=== PATIENT | female | born 1945 | race Caucasian/White ===

== ENCOUNTER 2024-05-12 22:30 | Inpatient (IN) | payer OTHER ==
[~2024-05-12] VITALS: Ht 152.4 cm; Wt 56.2 kg
[2024-05-12 22:36] VITALS: BP_SYST 182; PULSE 110; RESP 19; TEMP 98.3; O2SAT 94
[2024-05-12 23:13] LABS: BASOPHILS # (AUTO) 0.1 K/uL (0.0-0.2); BASOPHILS % (AUTO) 0.8 % (0.0-2.0); EOSINOPHILS # (AUTO) 0.1 K/uL (0.0-0.4); EOSINOPHILS % (AUTO) 0.5 % (0.0-4.0); HEMATOCRIT 41.6 % (36-48); HEMOGLOBIN 13.9 g/dL (12.0-16.0); LYMPHOCYTES # (AUTO) 2.8 K/uL (1.0-5.5); LYMPHOCYTES % (AUTO) 21.7 % (20.5-51.5); MEAN CORPUSCULAR HEMOGLOBIN 27 pg (27-31); MEAN CORPUSCULAR HGB CONC 33 % (32-36); MEAN CORPUSCULAR VOLUME 82 fL (79.0-98.0); MONOCYTES # (AUTO) 0.7 K/uL (0.0-1.0); MONOCYTES % (AUTO) 5.5 % (1.7-9.3); NEUTROPHILS # (AUTO) 9.3 K/uL (1.8-7.7); NEUTROPHILS % (AUTO) 71.5 % (40.0-70.0); PLATELET COUNT (AUTO) 304 K/uL (130-430); RED BLOOD CELL COUNT(AUTO) 5.06 MIL/uL (4.2-6.2); RED CELL DISTRIBUTION WIDTH 16.8 % (9.0-15.0)
[2024-05-12] MEDS: levETIRAcetam 1,500 MG in NS 85 ML IV ONE (23:24)
[2024-05-12] MEDS: LORazepam 2 MG/ML VIAL IVP ONE (23:26)
[2024-05-12 23:44] LABS: PROTHROMBIN TIME 10.3 SECS (9.5-12.5)
[2024-05-13] VITALS (7 sets, daily range): BP systolic 138–156; PULSE 80–104; RESP 16–20; TEMP 97.7–102; O2SAT 95–100
[2024-05-13 00:03] LABS: ALANINE AMINOTRANSFERASE 13 U/L (12-78); ALBUMIN 3.2 g/dL (3.4-4.8); ANION GAP 12 (5-15); ASPARTATE AMINOTRANSFERASE 16 U/L (10-37); BILIRUBIN,DIRECT 0.2 mg/dL (0.0-0.3); CARBON DIOXIDE 28 mmol/L (23-29); CHLORIDE 104 mmol/L (98-107); CREATININE 0.83 mg/dL (0.55-1.30); GLUCOSE 129 mg/dL (74-106); SODIUM SERUM 144 mmol/L (136-145); TOTAL BILIRUBIN 0.8 mg/dL (0.0-1.0); TOTAL PROTEIN, SERUM 7.8 g/dL (6.4-8.3); UREA NITROGEN, BLOOD 10 mg/dL (8-21)
[2024-05-13] MEDS ORDERED: PIPERACILLIN/TAZOBACTAM 4.5 GM/VIAL (ZOSYN) IV ONE (01:05)
[2024-05-13] MEDS: PIPERACILLIN/TAZO 4.5 GM in NS 100 ML IV ONE (01:35)
[2024-05-13] MEDS: hydrALAZINE HCL 20 MG/ML VIAL IVP ONE (01:40)
[2024-05-13] MEDS: NACL 0.9% 1,000 ML IV ONE (01:40)
[2024-05-13 02:14] LABS: BILIRUBIN,URINE NEGATIVE (NEGATIVE); CLARITY/URINE SL CLOUDY (CLEAR); COLOR,URINE YELLOW (YELLOW); GLUCOSE,URINE NEGATIVE (NEGATIVE); KETONES,URINE TRACE (NEGATIVE); LEUKOCYTE ESTERASE ,URINE 1+ (NEGATIVE); NITRITE, URINE POSITIVE (NEGATIVE); PH,URINE 6.5 (5.0-8.0); PROTEIN URINE 2+ (NEGATIVE)
[2024-05-13] MEDS ORDERED: ESCI5TAB16 PO (02:22)
[2024-05-13] MEDS ORDERED: ATOR40TA68 PO (02:22)
[2024-05-13] MEDS ORDERED: HYDR50TA44 PO (02:22)
[2024-05-13] MEDS ORDERED: GABA-331 PO (02:22)
[2024-05-13] MEDS ORDERED: ASPI-1155 PO (02:22)
[2024-05-13] MEDS ORDERED: LISI20TA30 PO (02:22)
[2024-05-13] MEDS ORDERED: ASPI-1393 PO (02:22)
[2024-05-13] MEDS ORDERED: ATEN50TA PO (02:22)
[2024-05-13] MEDS ORDERED: KCL 20 mEq in 100 mL (PREMIX) 200 ML IV ONE (02:33)
[2024-05-13 02:37] LABS: BLOOD, URINE TRACE (NEGATIVE)
[2024-05-13 02:39] LABS: BACTERIA,URINE MANY /HPF (None Seen); WBC,URINE >100 /HPF (0-3)
[2024-05-13] MEDS: KCL 40 mEq in 100 mL (PREMIX) 100 ML IV ONE (02:40)
[2024-05-13] MEDS: D5/0.45 NS 1,000 ML IV SCH (04:40)
[2024-05-13] MEDS ORDERED: levETIRAcetam 500 MG IV PREMIX 100 ML IV SCH (09:00)
[2024-05-13] MEDS: ACETAMINOPHEN 650 MG SUPP.RECT RC PRN (09:16)
[2024-05-13] MEDS: levETIRAcetam 500 MG IV PREMIX 100 ML IV SCH (09:16)
[2024-05-13] MEDS ORDERED: PIPERACILLIN/TAZO 3.375 GM in NS 50 ML IV ONE (11:15)
[2024-05-13] MEDS ORDERED: LABETALOL HCL 20 MG/4 ML CARTRIDGE IVP PRN (11:15)
[2024-05-13] MEDS: PIPERACILLIN/TAZO 3.375 GM in NS 50 ML IV SCH (15:48)
[2024-05-14 00:44] VITALS: BP_SYST 154; PULSE 95; RESP 19; TEMP 98.1; O2SAT 98
[2024-05-14 08:04] VITALS: BP_SYST 229; PULSE 76; RESP 16; TEMP 97.3; O2SAT 98
[2024-05-14] MEDS: LABETALOL HCL 20 MG/4 ML CARTRIDGE IVP PRN ×2 (08:32→16:22)
[2024-05-14 09:00] VITALS: O2SAT 98
[2024-05-14 12:04] LABS: ALANINE AMINOTRANSFERASE 8 U/L (12-78); ALBUMIN 2.6 g/dL (3.4-4.8); ANION GAP 7 (5-15); ASPARTATE AMINOTRANSFERASE 14 U/L (10-37); CARBON DIOXIDE 28 mmol/L (23-29); CHLORIDE 108 mmol/L (98-107); CREATININE 0.78 mg/dL (0.55-1.30); GLUCOSE 114 mg/dL (74-106); SODIUM SERUM 143 mmol/L (136-145); TOTAL BILIRUBIN 0.9 mg/dL (0.0-1.0); TOTAL PROTEIN, SERUM 6.5 g/dL (6.4-8.3); UREA NITROGEN, BLOOD 3 mg/dL (8-21)
[2024-05-14 12:10] LABS: POTASSIUM 2.7 mmol/L (3.5-5.1)
[2024-05-14 12:42] VITALS: BP_SYST 148; PULSE 82; RESP 18; TEMP 97.2; O2SAT 98
[2024-05-14 16:48] VITALS: BP_SYST 194; PULSE 84; RESP 18; TEMP 97.7; O2SAT 100
[2024-05-14] MEDS: ENALAPRILAT DIHYDRATE 1.25 MG/ML VIAL IVP PRN (18:17)
[2024-05-14] MEDS: VANCOMYCIN HCL 1,000 MG in NS 250 ML IV ONE (19:15)
[2024-05-14 19:40] VITALS: BP_SYST 185; PULSE 90; RESP 21; TEMP 97.6; O2SAT 98
[2024-05-14] MEDS: METOPROLOL TARTRATE 25 MG TABLET PO SCH (20:07)
[2024-05-14] MEDS: ACETAMINOPHEN 650 MG SUPP.RECT RC PRN (20:09)
[2024-05-14] MEDS: hydrALAZINE HCL 25 MG TABLET PO SCH (21:38)
[2024-05-14] MEDS: POTASSIUM CHLORIDE 40 MEQ in NS 250 ML IV ONE (22:02)
[2024-05-14] MEDS: KCL 40 mEq in 100 mL (PREMIX) 100 ML IV ONE (22:03)
[2024-05-14] MEDS: LABETALOL 100 MG/ 20ML VIAL ONE (23:46)
[2024-05-15] VITALS (7 sets, daily range): BP systolic 140–215; PULSE 92–97; RESP 18–21; TEMP 98.5–99.5; O2SAT 95–97
[2024-05-15] MEDS: LORazepam 2 MG/ML VIAL IVP ONE (03:49)
[2024-05-15] MEDS: levETIRAcetam 500 MG in NS 100 ML IV ONE (04:04)
[2024-05-15] MEDS: ceFAZolin SODIUM 1 GM in D5W 50 ML IV ONE (06:30)
[2024-05-15] MEDS: MIDAZOLAM HCL 5 MG/5 ML VIAL ONE (06:34)
[2024-05-15] MEDS: fentaNYL CITRATE/PF 100 MCG/2 ML AMP ONE (06:34)
[2024-05-15 07:06] LABS: BASOPHILS # (AUTO) 0.1 K/uL (0.0-0.2); BASOPHILS % (AUTO) 0.7 % (0.0-2.0); EOSINOPHILS % (AUTO) 0.1 % (0.0-4.0); HEMATOCRIT 30.6 % (36-48); HEMOGLOBIN 10.1 g/dL (12.0-16.0); LYMPHOCYTES # (AUTO) 1.7 K/uL (1.0-5.5); LYMPHOCYTES % (AUTO) 14.5 % (20.5-51.5); MEAN CORPUSCULAR HEMOGLOBIN 27 pg (27-31); MEAN CORPUSCULAR HGB CONC 33 % (32-36); MEAN CORPUSCULAR VOLUME 82 fL (79.0-98.0); MONOCYTES # (AUTO) 0.6 K/uL (0.0-1.0); MONOCYTES % (AUTO) 5.4 % (1.7-9.3); NEUTROPHILS # (AUTO) 9.5 K/uL (1.8-7.7); NEUTROPHILS % (AUTO) 79.3 % (40.0-70.0); PLATELET COUNT (AUTO) 241 K/uL (130-430); RED BLOOD CELL COUNT(AUTO) 3.73 MIL/uL (4.2-6.2); RED CELL DISTRIBUTION WIDTH 16.7 % (9.0-15.0); WHITE BLOOD COUNT (AUTO) 11.9 K/uL (4.8-10.8)
[2024-05-15 07:27] LABS: ANION GAP 8 (5-15); CALCIUM 7.4 mg/dL (8.4-11.0); CARBON DIOXIDE 27 mmol/L (23-29); CHLORIDE 108 mmol/L (98-107); CREATININE 0.81 mg/dL (0.55-1.30); GLUCOSE 139 mg/dL (74-106); SODIUM SERUM 143 mmol/L (136-145); UREA NITROGEN, BLOOD 4 mg/dL (8-21)
[2024-05-15 07:36] LABS: INR 1.1 (0.8-1.2); PROTHROMBIN TIME 11.3 SECS (9.5-12.5)
[2024-05-15 07:47] LABS: POTASSIUM 2.9 mmol/L (3.5-5.1)
[2024-05-15] MEDS: POTASSIUM CHLORIDE 40 MEQ in NS 250 ML IV ONE (10:06)
[2024-05-15] MEDS: LOSARTAN POTASSIUM 25 MG TABLET PO ONE (18:05)
[2024-05-15] MEDS: LOSARTAN POTASSIUM 25 MG TABLET PO SCH (20:46)
[2024-05-15] MEDS: VANCOMYCIN HCL 1,000 MG in NS 250 ML IV SCH (21:56)
[2024-05-16] VITALS (8 sets, daily range): BP systolic 143–220; PULSE 78–89; RESP 16–20; TEMP 97.7–98.2; O2SAT 96–98
[2024-05-16] MEDS: LABETALOL 100 MG/ 20ML VIAL ONE (00:20)
[2024-05-16 07:15] LABS: BASOPHILS % (AUTO) 0.4 % (0.0-2.0); EOSINOPHILS % (AUTO) 0.4 % (0.0-4.0); HEMATOCRIT 34.5 % (36-48); HEMOGLOBIN 11.1 g/dL (12.0-16.0); LYMPHOCYTES # (AUTO) 1.6 K/uL (1.0-5.5); LYMPHOCYTES % (AUTO) 12.1 % (20.5-51.5); MEAN CORPUSCULAR HEMOGLOBIN 27 pg (27-31); MEAN CORPUSCULAR HGB CONC 32 % (32-36); MEAN CORPUSCULAR VOLUME 83 fL (79.0-98.0); MONOCYTES # (AUTO) 0.6 K/uL (0.0-1.0); MONOCYTES % (AUTO) 4.8 % (1.7-9.3); NEUTROPHILS # (AUTO) 10.7 K/uL (1.8-7.7); NEUTROPHILS % (AUTO) 82.3 % (40.0-70.0); PLATELET COUNT (AUTO) 263 K/uL (130-430); RED BLOOD CELL COUNT(AUTO) 4.15 MIL/uL (4.2-6.2)
[2024-05-16 07:38] LABS: ANION GAP 10 (5-15); CALCIUM 7.9 mg/dL (8.4-11.0); CARBON DIOXIDE 26 mmol/L (23-29); CHLORIDE 105 mmol/L (98-107); CREATININE 0.75 mg/dL (0.55-1.30); GLUCOSE 147 mg/dL (74-106); POTASSIUM 3.2 mmol/L (3.5-5.1); SODIUM SERUM 141 mmol/L (136-145); UREA NITROGEN, BLOOD 4 mg/dL (8-21)
[2024-05-16] MEDS: ASPIRIN 81 MG TABLET(ECOTRIN) PO SCH (08:23)
[2024-05-16] MEDS: ALBUTEROL SULFATE 0.083% 2.5 MG/3 ML VIAL.NEB INH SCH (15:17)
[2024-05-16] MEDS: IPRATROPIUM BROM 0.5 MG/2.5 ML VIAL.NEB (ATROVENT) INH SCH (15:17)
[2024-05-16] MEDS: ACETYLCYSTEINE 20% 4 ML VIAL (RT) INH SCH (15:18)
[2024-05-16] MEDS: CELECOXIB 100 MG CAPSULE PO PRN (20:11)
[2024-05-17] VITALS (13 sets, daily range): BP systolic 144–201; PULSE 76–98; RESP 16–19; TEMP 97.5–98.7; O2SAT 95–100
[2024-05-17 07:44] LABS: BASOPHILS % (AUTO) 0.4 % (0.0-2.0); EOSINOPHILS # (AUTO) 0.1 K/uL (0.0-0.4); EOSINOPHILS % (AUTO) 0.7 % (0.0-4.0); HEMATOCRIT 32.9 % (36-48); HEMOGLOBIN 10.7 g/dL (12.0-16.0); LYMPHOCYTES # (AUTO) 1.4 K/uL (1.0-5.5); LYMPHOCYTES % (AUTO) 11.5 % (20.5-51.5); MEAN CORPUSCULAR HEMOGLOBIN 27 pg (27-31); MEAN CORPUSCULAR HGB CONC 33 % (32-36); MEAN CORPUSCULAR VOLUME 82 fL (79.0-98.0); MONOCYTES # (AUTO) 0.7 K/uL (0.0-1.0); MONOCYTES % (AUTO) 5.8 % (1.7-9.3); NEUTROPHILS % (AUTO) 81.6 % (40.0-70.0); PLATELET COUNT (AUTO) 273 K/uL (130-430); RED BLOOD CELL COUNT(AUTO) 4.02 MIL/uL (4.2-6.2); RED CELL DISTRIBUTION WIDTH 16.4 % (9.0-15.0); WHITE BLOOD COUNT (AUTO) 12.3 K/uL (4.8-10.8)
[2024-05-17 07:50] LABS: ALANINE AMINOTRANSFERASE 11 U/L (12-78); ALBUMIN 2.3 g/dL (3.4-4.8); ANION GAP 10 (5-15); ASPARTATE AMINOTRANSFERASE 18 U/L (10-37); CALCIUM 7.5 mg/dL (8.4-11.0); CARBON DIOXIDE 26 mmol/L (23-29); CHLORIDE 100 mmol/L (98-107); CREATININE 0.83 mg/dL (0.55-1.30); GLUCOSE 153 mg/dL (74-106); SODIUM SERUM 136 mmol/L (136-145); TOTAL BILIRUBIN 0.5 mg/dL (0.0-1.0); TOTAL PROTEIN, SERUM 6.2 g/dL (6.4-8.3); UREA NITROGEN, BLOOD 3 mg/dL (8-21)
[2024-05-17 07:53] LABS: POTASSIUM 2.6 mmol/L (3.5-5.1)
[2024-05-17] MEDS: DOCUSATE SODIUM 100 MG/10 ML UDC PO PRN (08:20)
[2024-05-17] MEDS ORDERED: KCL 40 mEq in 100 mL (PREMIX) 100 ML IV ONE (10:00)
[2024-05-17] MEDS: POTASSIUM CHLORIDE 20 mEq in 100 mL (PREMIX) 100 ML x 2 doses IV SCH (10:37)
[2024-05-17] MEDS: CALCIUM GLUC 2 GM/100ML-NACL 100 ML IV ONE (13:32)
[2024-05-18] VITALS (13 sets, daily range): BP systolic 166–202; PULSE 90–112; RESP 16–22; TEMP 97.8–99.1; O2SAT 96–100
[2024-05-18 07:52] LABS: ALANINE AMINOTRANSFERASE 12 U/L (12-78); ALBUMIN 2.2 g/dL (3.4-4.8); ANION GAP 9 (5-15); ASPARTATE AMINOTRANSFERASE 20 U/L (10-37); CALCIUM 7.9 mg/dL (8.4-11.0); CARBON DIOXIDE 27 mmol/L (23-29); CHLORIDE 101 mmol/L (98-107); CREATININE 0.87 mg/dL (0.55-1.30); GLUCOSE 195 mg/dL (74-106); PHOSPHORUS 2.2 mg/dL (2.7-4.5); SODIUM SERUM 137 mmol/L (136-145); TOTAL BILIRUBIN 0.5 mg/dL (0.0-1.0); UREA NITROGEN, BLOOD 5 mg/dL (8-21)
[2024-05-18 07:55] LABS: BASOPHILS % (AUTO) 0.1 % (0.0-2.0); EOSINOPHILS % (AUTO) 0.2 % (0.0-4.0); HEMATOCRIT 32.7 % (36-48); HEMOGLOBIN 10.7 g/dL (12.0-16.0); LYMPHOCYTES # (AUTO) 1.1 K/uL (1.0-5.5); LYMPHOCYTES % (AUTO) 5.7 % (20.5-51.5); MEAN CORPUSCULAR HEMOGLOBIN 27 pg (27-31); MEAN CORPUSCULAR HGB CONC 33 % (32-36); MEAN CORPUSCULAR VOLUME 81 fL (79.0-98.0); MONOCYTES # (AUTO) 0.9 K/uL (0.0-1.0); MONOCYTES % (AUTO) 4.9 % (1.7-9.3); NEUTROPHILS # (AUTO) 16.9 K/uL (1.8-7.7); NEUTROPHILS % (AUTO) 89.1 % (40.0-70.0); PLATELET COUNT (AUTO) 288 K/uL (130-430); RED BLOOD CELL COUNT(AUTO) 4.03 MIL/uL (4.2-6.2); RED CELL DISTRIBUTION WIDTH 16.6 % (9.0-15.0)
[2024-05-18 08:44] LABS: POTASSIUM 2.7 mmol/L (3.5-5.1)
[2024-05-18 09:00] LABS: ERYTHROCYTE SEDIMENTATION RATE 42 MM/HR (0-20)
[2024-05-18] MEDS: FUROSEMIDE 20 MG/2 ML VIAL IVP ONE (09:15)
[2024-05-18] MEDS: POTASSIUM CHLORIDE 40 MEQ in NS 250 ML IV ONE (10:47)
[2024-05-18] MEDS ORDERED: IPRATROPIUM BROM 0.5 MG/2.5 ML VIAL.NEB (ATROVENT) INH PRN (11:00)
[2024-05-18] MEDS ORDERED: ALBUTEROL SULFATE 0.083% 2.5 MG/3 ML VIAL.NEB INH PRN (11:00)
[2024-05-18 11:34] LABS: ANISOCYTOSIS 1+
[2024-05-18] MEDS: IPRATROPIUM/ALBUTEROL SULFATE 3 ML AMPUL.NEB (DUONEB) INH SCH (11:37)
[2024-05-18] MEDS: cloNIDine HCL 0.1 MG/24 HR PATCH.TDWK TD ONE (12:23)
[2024-05-18] MEDS: LABETALOL 100 MG/ 20ML VIAL ONE (23:03)
[2024-05-19] VITALS (13 sets, daily range): BP systolic 133–187; PULSE 97–108; RESP 16–20; TEMP 97.1–99.4; O2SAT 91–97
[2024-05-19 07:08] LABS: BASOPHILS # (AUTO) 0.1 K/uL (0.0-0.2); BASOPHILS % (AUTO) 0.3 % (0.0-2.0); EOSINOPHILS # (AUTO) 0.4 K/uL (0.0-0.4); EOSINOPHILS % (AUTO) 1.9 % (0.0-4.0); HEMATOCRIT 31.8 % (36-48); HEMOGLOBIN 10.4 g/dL (12.0-16.0); LYMPHOCYTES # (AUTO) 1.2 K/uL (1.0-5.5); LYMPHOCYTES % (AUTO) 5.5 % (20.5-51.5); MEAN CORPUSCULAR HEMOGLOBIN 27 pg (27-31); MEAN CORPUSCULAR HGB CONC 33 % (32-36); MEAN CORPUSCULAR VOLUME 81 fL (79.0-98.0); MONOCYTES % (AUTO) 4.8 % (1.7-9.3); NEUTROPHILS # (AUTO) 18.9 K/uL (1.8-7.7); NEUTROPHILS % (AUTO) 87.5 % (40.0-70.0); PLATELET COUNT (AUTO) 263 K/uL (130-430); RED BLOOD CELL COUNT(AUTO) 3.91 MIL/uL (4.2-6.2); RED CELL DISTRIBUTION WIDTH 16.8 % (9.0-15.0); WHITE BLOOD COUNT (AUTO) 21.6 K/uL (4.8-10.8)
[2024-05-19 07:57] LABS: ALANINE AMINOTRANSFERASE 14 U/L (12-78); ALBUMIN 2.1 g/dL (3.4-4.8); ANION GAP 8 (5-15); ASPARTATE AMINOTRANSFERASE 22 U/L (10-37); CARBON DIOXIDE 29 mmol/L (23-29); CHLORIDE 102 mmol/L (98-107); GLUCOSE 142 mg/dL (74-106); SODIUM SERUM 139 mmol/L (136-145); TOTAL BILIRUBIN 0.5 mg/dL (0.0-1.0); TOTAL PROTEIN, SERUM 5.9 g/dL (6.4-8.3); UREA NITROGEN, BLOOD 5 mg/dL (8-21)
[2024-05-19 08:05] LABS: POTASSIUM 2.6 mmol/L (3.5-5.1)
[2024-05-19] MEDS ORDERED: cloNIDine HCL 0.1 MG TABLET PO PRN (12:00)
[2024-05-19] MEDS: KCL 40 mEq in 100 mL (PREMIX) 100 ML IV ONE ×2 (13:00→14:11)
[2024-05-19 18:55] LABS: BASOPHILS # (AUTO) 0.1 K/uL (0.0-0.2); BASOPHILS % (AUTO) 0.3 % (0.0-2.0); EOSINOPHILS # (AUTO) 0.4 K/uL (0.0-0.4); EOSINOPHILS % (AUTO) 2.2 % (0.0-4.0); HEMATOCRIT 27.7 % (36-48); HEMOGLOBIN 9.4 g/dL (12.0-16.0); LYMPHOCYTES # (AUTO) 1.4 K/uL (1.0-5.5); LYMPHOCYTES % (AUTO) 6.9 % (20.5-51.5); MEAN CORPUSCULAR HEMOGLOBIN 28 pg (27-31); MEAN CORPUSCULAR HGB CONC 34 % (32-36); MEAN CORPUSCULAR VOLUME 81 fL (79.0-98.0); MONOCYTES # (AUTO) 0.9 K/uL (0.0-1.0); MONOCYTES % (AUTO) 4.6 % (1.7-9.3); NEUTROPHILS # (AUTO) 16.8 K/uL (1.8-7.7); PLATELET COUNT (AUTO) 250 K/uL (130-430); RED BLOOD CELL COUNT(AUTO) 3.42 MIL/uL (4.2-6.2); RED CELL DISTRIBUTION WIDTH 16.9 % (9.0-15.0); WHITE BLOOD COUNT (AUTO) 19.5 K/uL (4.8-10.8)
[2024-05-20] VITALS (12 sets, daily range): BP systolic 132–150; PULSE 96–113; RESP 18–20; TEMP 97.8–98.9; O2SAT 95–98
[2024-05-20 09:51] LABS: BASOPHILS # (AUTO) 0.1 K/uL (0.0-0.2); BASOPHILS % (AUTO) 0.5 % (0.0-2.0); EOSINOPHILS # (AUTO) 0.8 K/uL (0.0-0.4); EOSINOPHILS % (AUTO) 5.2 % (0.0-4.0); HEMATOCRIT 29.8 % (36-48); HEMOGLOBIN 9.8 g/dL (12.0-16.0); LYMPHOCYTES % (AUTO) 7.1 % (20.5-51.5); MEAN CORPUSCULAR HEMOGLOBIN 27 pg (27-31); MEAN CORPUSCULAR HGB CONC 33 % (32-36); MEAN CORPUSCULAR VOLUME 81 fL (79.0-98.0); MONOCYTES # (AUTO) 0.8 K/uL (0.0-1.0); MONOCYTES % (AUTO) 5.6 % (1.7-9.3); NEUTROPHILS # (AUTO) 11.8 K/uL (1.8-7.7); NEUTROPHILS % (AUTO) 81.6 % (40.0-70.0); PLATELET COUNT (AUTO) 272 K/uL (130-430); RED BLOOD CELL COUNT(AUTO) 3.67 MIL/uL (4.2-6.2); RED CELL DISTRIBUTION WIDTH 17.1 % (9.0-15.0); WHITE BLOOD COUNT (AUTO) 14.4 K/uL (4.8-10.8)
[2024-05-20 10:07] LABS: ANION GAP 7 (5-15); CALCIUM 7.5 mg/dL (8.4-11.0); CARBON DIOXIDE 28 mmol/L (23-29); CHLORIDE 104 mmol/L (98-107); CREATININE 0.85 mg/dL (0.55-1.30); GLUCOSE 149 mg/dL (74-106); SODIUM SERUM 139 mmol/L (136-145); UREA NITROGEN, BLOOD 5 mg/dL (8-21)
[2024-05-20 10:09] LABS: POTASSIUM 2.7 mmol/L (3.5-5.1)
[2024-05-20] MEDS ORDERED: KCL 40 mEq in 100 mL (PREMIX) 100 ML IV ONE (10:15)
[2024-05-20] MEDS: POTASSIUM CHLORIDE 20 mEq in 100 mL (PREMIX) 100 ML x 2 doses IV SCH (11:14)
[2024-05-21] VITALS (10 sets, daily range): BP systolic 116–158; PULSE 100–111; RESP 16–18; TEMP 98.3–98.8; O2SAT 93–96
[2024-05-21] MEDS: ACETAMINOPHEN 650 MG/20.3 ML UDC NG PRN (01:06)
[2024-05-21] MEDS ORDERED: LORazepam 2 MG/ML VIAL IVP PRN (10:30)
[2024-05-21] MEDS: LORazepam 2 MG/ML VIAL IVP PRN (10:50)
[2024-05-21] MEDS: POTASSIUM CHLORIDE 20 MEQ/PKT PACKET GT ONE (11:44)
[2024-05-21 17:01] LABS: BASOPHILS # (AUTO) 0.1 K/uL (0.0-0.2); BASOPHILS % (AUTO) 0.8 % (0.0-2.0); EOSINOPHILS # (AUTO) 0.9 K/uL (0.0-0.4); EOSINOPHILS % (AUTO) 7.4 % (0.0-4.0); HEMOGLOBIN 9.7 g/dL (12.0-16.0); LYMPHOCYTES # (AUTO) 2.2 K/uL (1.0-5.5); MEAN CORPUSCULAR HEMOGLOBIN 27 pg (27-31); MEAN CORPUSCULAR HGB CONC 33 % (32-36); MEAN CORPUSCULAR VOLUME 81 fL (79.0-98.0); MONOCYTES % (AUTO) 8.1 % (1.7-9.3); NEUTROPHILS # (AUTO) 8.5 K/uL (1.8-7.7); NEUTROPHILS % (AUTO) 66.7 % (40.0-70.0); PLATELET COUNT (AUTO) 289 K/uL (130-430); RED BLOOD CELL COUNT(AUTO) 3.57 MIL/uL (4.2-6.2); RED CELL DISTRIBUTION WIDTH 17.6 % (9.0-15.0); WHITE BLOOD COUNT (AUTO) 12.8 K/uL (4.8-10.8)
[2024-05-21 17:21] LABS: ANION GAP 3 (5-15); CALCIUM 7.6 mg/dL (8.4-11.0); CARBON DIOXIDE 30 mmol/L (23-29); CHLORIDE 109 mmol/L (98-107); CREATININE 1.03 mg/dL (0.55-1.30); GLUCOSE 135 mg/dL (74-106); SODIUM SERUM 142 mmol/L (136-145); UREA NITROGEN, BLOOD 6 mg/dL (8-21)
[2024-05-21] MEDS: levETIRAcetam 1,000 MG in NS 100 ML IV SCH (21:57)
[2024-05-21] MEDS: POTASSIUM CHLORIDE 20 MEQ/PKT PACKET GT SCH (22:03)
[2024-05-22] VITALS (11 sets, daily range): BP systolic 127–150; PULSE 102–118; RESP 16–18; TEMP 98.1–98.8; O2SAT 94–98
[2024-05-22 07:18] LABS: BASOPHILS # (AUTO) 0.1 K/uL (0.0-0.2); BASOPHILS % (AUTO) 0.5 % (0.0-2.0); EOSINOPHILS % (AUTO) 7.3 % (0.0-4.0); HEMATOCRIT 29.2 % (36-48); HEMOGLOBIN 9.7 g/dL (12.0-16.0); LYMPHOCYTES # (AUTO) 2.4 K/uL (1.0-5.5); MEAN CORPUSCULAR HEMOGLOBIN 27 pg (27-31); MEAN CORPUSCULAR HGB CONC 33 % (32-36); MEAN CORPUSCULAR VOLUME 81 fL (79.0-98.0); MONOCYTES # (AUTO) 1.1 K/uL (0.0-1.0); MONOCYTES % (AUTO) 8.6 % (1.7-9.3); NEUTROPHILS # (AUTO) 8.6 K/uL (1.8-7.7); NEUTROPHILS % (AUTO) 65.6 % (40.0-70.0); PLATELET COUNT (AUTO) 316 K/uL (130-430); RED CELL DISTRIBUTION WIDTH 17.1 % (9.0-15.0); WHITE BLOOD COUNT (AUTO) 13.2 K/uL (4.8-10.8)
[2024-05-22 07:30] LABS: ERYTHROCYTE SEDIMENTATION RATE 42 MM/HR (0-20)
[2024-05-22 07:32] LABS: ALANINE AMINOTRANSFERASE 23 U/L (12-78); ALBUMIN 1.9 g/dL (3.4-4.8); ANION GAP 6 (5-15); ASPARTATE AMINOTRANSFERASE 25 U/L (10-37); CALCIUM 7.9 mg/dL (8.4-11.0); CARBON DIOXIDE 27 mmol/L (23-29); CHLORIDE 107 mmol/L (98-107); CREATININE 0.91 mg/dL (0.55-1.30); GLUCOSE 138 mg/dL (74-106); POTASSIUM 4.3 mmol/L (3.5-5.1); SODIUM SERUM 140 mmol/L (136-145); TOTAL BILIRUBIN 0.4 mg/dL (0.0-1.0); TOTAL PROTEIN, SERUM 5.5 g/dL (6.4-8.3); UREA NITROGEN, BLOOD 8 mg/dL (8-21)
[2024-05-22] MEDS: DOXYCYCLINE HYCLATE 100 MG TABLET PO ONE (14:31)
[2024-05-22] MEDS: VANCOMYCIN HCL 1,000 MG in NS 250 ML IV SCH (21:13)
[2024-05-22] MEDS: DOXYCYCLINE HYCLATE 100 MG TABLET PO SCH (22:35)
[2024-05-23] VITALS (11 sets, daily range): BP systolic 109–160; PULSE 99–116; RESP 15–20; TEMP 96.7–98.2; O2SAT 94–96
[2024-05-23 06:51] LABS: BASOPHILS # (AUTO) 0.1 K/uL (0.0-0.2); BASOPHILS % (AUTO) 0.5 % (0.0-2.0); EOSINOPHILS % (AUTO) 7.3 % (0.0-4.0); HEMATOCRIT 29.3 % (36-48); HEMOGLOBIN 9.6 g/dL (12.0-16.0); LYMPHOCYTES # (AUTO) 1.9 K/uL (1.0-5.5); LYMPHOCYTES % (AUTO) 14.6 % (20.5-51.5); MEAN CORPUSCULAR HEMOGLOBIN 27 pg (27-31); MEAN CORPUSCULAR HGB CONC 33 % (32-36); MEAN CORPUSCULAR VOLUME 82 fL (79.0-98.0); MONOCYTES % (AUTO) 7.5 % (1.7-9.3); NEUTROPHILS # (AUTO) 9.4 K/uL (1.8-7.7); NEUTROPHILS % (AUTO) 70.1 % (40.0-70.0); PLATELET COUNT (AUTO) 308 K/uL (130-430); RED BLOOD CELL COUNT(AUTO) 3.57 MIL/uL (4.2-6.2); RED CELL DISTRIBUTION WIDTH 17.5 % (9.0-15.0); WHITE BLOOD COUNT (AUTO) 13.4 K/uL (4.8-10.8)
[2024-05-23 07:04] LABS: ANION GAP 5 (5-15); CALCIUM 8.3 mg/dL (8.4-11.0); CARBON DIOXIDE 28 mmol/L (23-29); CHLORIDE 108 mmol/L (98-107); CREATININE 0.91 mg/dL (0.55-1.30); GLUCOSE 151 mg/dL (74-106); POTASSIUM 4.4 mmol/L (3.5-5.1); SODIUM SERUM 141 mmol/L (136-145); UREA NITROGEN, BLOOD 8 mg/dL (8-21)
[2024-05-23 07:20] LABS: ERYTHROCYTE SEDIMENTATION RATE 42 MM/HR (0-20)
[2024-05-23] MEDS: CALCIUM GLUC 2 GM/100ML-NACL 100 ML IV ONE (13:07)
[2024-05-24] VITALS (13 sets, daily range): BP systolic 118–171; PULSE 89–104; RESP 18–20; TEMP 97.8–98.3; O2SAT 93–98
[2024-05-24] MEDS: ONDANSETRON HCL 4 MG/2 ML VIAL IVP PRN (01:10)
[2024-05-24 06:44] LABS: BASOPHILS # (AUTO) 0.1 K/uL (0.0-0.2); BASOPHILS % (AUTO) 0.4 % (0.0-2.0); EOSINOPHILS # (AUTO) 0.6 K/uL (0.0-0.4); EOSINOPHILS % (AUTO) 4.7 % (0.0-4.0); HEMATOCRIT 27.3 % (36-48); HEMOGLOBIN 8.9 g/dL (12.0-16.0); LYMPHOCYTES # (AUTO) 1.6 K/uL (1.0-5.5); LYMPHOCYTES % (AUTO) 13.4 % (20.5-51.5); MEAN CORPUSCULAR HEMOGLOBIN 27 pg (27-31); MEAN CORPUSCULAR HGB CONC 33 % (32-36); MEAN CORPUSCULAR VOLUME 83 fL (79.0-98.0); MONOCYTES # (AUTO) 0.9 K/uL (0.0-1.0); MONOCYTES % (AUTO) 7.7 % (1.7-9.3); NEUTROPHILS # (AUTO) 8.9 K/uL (1.8-7.7); NEUTROPHILS % (AUTO) 73.8 % (40.0-70.0); PLATELET COUNT (AUTO) 295 K/uL (130-430); RED CELL DISTRIBUTION WIDTH 17.6 % (9.0-15.0); WHITE BLOOD COUNT (AUTO) 12.1 K/uL (4.8-10.8)
[2024-05-24 07:46] LABS: ERYTHROCYTE SEDIMENTATION RATE 37 MM/HR (0-20)
[2024-05-24 07:59] LABS: ANION GAP 8 (5-15); CALCIUM 7.9 mg/dL (8.4-11.0); CARBON DIOXIDE 27 mmol/L (23-29); CHLORIDE 107 mmol/L (98-107); CREATININE 1.02 mg/dL (0.55-1.30); GLUCOSE 155 mg/dL (74-106); POTASSIUM 3.8 mmol/L (3.5-5.1); SODIUM SERUM 142 mmol/L (136-145); UREA NITROGEN, BLOOD 8 mg/dL (8-21)
[2024-05-24] MEDS ORDERED: MORPHINE 4 MG INJ. 4 MG/ML VIAL IVP PRN (18:00)
[2024-05-24] MEDS: MORPHINE 2 MG/ML INJ. SYRINGE IVP PRN (18:34)
[2024-05-25] VITALS (15 sets, daily range): BP systolic 134–188; PULSE 74–98; RESP 16–18; TEMP 97.3–98.1; O2SAT 88–99
[2024-05-25 07:25] LABS: BASOPHILS # (AUTO) 0.1 K/uL (0.0-0.2); BASOPHILS % (AUTO) 0.8 % (0.0-2.0); EOSINOPHILS # (AUTO) 0.7 K/uL (0.0-0.4); EOSINOPHILS % (AUTO) 6.9 % (0.0-4.0); HEMATOCRIT 26.6 % (36-48); HEMOGLOBIN 8.8 g/dL (12.0-16.0); LYMPHOCYTES # (AUTO) 2.1 K/uL (1.0-5.5); LYMPHOCYTES % (AUTO) 21.3 % (20.5-51.5); MEAN CORPUSCULAR HEMOGLOBIN 27 pg (27-31); MEAN CORPUSCULAR HGB CONC 33 % (32-36); MEAN CORPUSCULAR VOLUME 83 fL (79.0-98.0); MONOCYTES # (AUTO) 0.7 K/uL (0.0-1.0); MONOCYTES % (AUTO) 7.5 % (1.7-9.3); NEUTROPHILS # (AUTO) 6.1 K/uL (1.8-7.7); NEUTROPHILS % (AUTO) 63.5 % (40.0-70.0); PLATELET COUNT (AUTO) 301 K/uL (130-430); RED BLOOD CELL COUNT(AUTO) 3.23 MIL/uL (4.2-6.2); RED CELL DISTRIBUTION WIDTH 17.5 % (9.0-15.0); WHITE BLOOD COUNT (AUTO) 9.7 K/uL (4.8-10.8)
[2024-05-25 07:44] LABS: ALANINE AMINOTRANSFERASE 17 U/L (12-78); ALBUMIN 1.8 g/dL (3.4-4.8); ANION GAP 3 (5-15); ASPARTATE AMINOTRANSFERASE 22 U/L (10-37); CALCIUM 8.1 mg/dL (8.4-11.0); CARBON DIOXIDE 30 mmol/L (23-29); CHLORIDE 108 mmol/L (98-107); CREATININE 0.98 mg/dL (0.55-1.30); GLUCOSE 127 mg/dL (74-106); POTASSIUM 3.3 mmol/L (3.5-5.1); SODIUM SERUM 141 mmol/L (136-145); TOTAL BILIRUBIN 0.4 mg/dL (0.0-1.0); TOTAL PROTEIN, SERUM 5.8 g/dL (6.4-8.3); UREA NITROGEN, BLOOD 6 mg/dL (8-21)
[2024-05-25 07:57] LABS: ERYTHROCYTE SEDIMENTATION RATE 60 MM/HR (0-20)
[2024-05-25] MEDS: hydrALAZINE HCL 25 MG TABLET PO SCH (12:00)
[2024-05-25] MEDS: cloNIDine HCL 0.1 MG/24 HR PATCH.TDWK TD SCH (17:12)
[2024-05-26] VITALS (14 sets, daily range): BP systolic 144–170; PULSE 74–112; RESP 18–21; TEMP 97.8–98.6; O2SAT 95–100
[2024-05-26 09:04] LABS: INR 1.1 (0.8-1.2)
[2024-05-26] MEDS: NITROGLYCERIN 1 INCH (GM) OINT. TP SCH (11:53)
[2024-05-26] MEDS: METOPROLOL TARTRATE 5 MG/5 ML VIAL IVP PRN (13:05)
[2024-05-26] MEDS: POTASSIUM CHLORIDE 20 MEQ, LIDOCAINE JECT 2% PF 100 MG 50 MG in NS 250 ML IV ONE (14:27)
[2024-05-26] MEDS: KCL 20 mEq in D5NS 1000 mL 1,000 ML IV SCH (14:28)
[2024-05-26 21:32] LABS: ANION GAP 5 (5-15); CALCIUM 7.9 mg/dL (8.4-11.0); CARBON DIOXIDE 29 mmol/L (23-29); CHLORIDE 110 mmol/L (98-107); CREATININE 0.86 mg/dL (0.55-1.30); GLUCOSE 120 mg/dL (74-106); POTASSIUM 3.5 mmol/L (3.5-5.1); SODIUM SERUM 144 mmol/L (136-145); UREA NITROGEN, BLOOD 4 mg/dL (8-21)
[2024-05-27] VITALS (11 sets, daily range): BP systolic 155–198; PULSE 82–94; RESP 17–19; TEMP 96.6–97.7; O2SAT 96–98
[2024-05-27] MEDS ORDERED: LABETALOL 100 MG/ 20ML VIAL ONE (05:12)
[2024-05-27] MEDS ORDERED: SIMETHICONE 40 MG/0.6 ML ML ONE (07:16)
[2024-05-27] MEDS ORDERED: MIDAZOLAM HCL 5 MG/5 ML VIAL ONE (07:17)
[2024-05-27] MEDS ORDERED: BENZOCAINE 20% 0.5mL UD SPRAY MM ONE (07:17)
[2024-05-27] MEDS ORDERED: fentaNYL CITRATE/PF 100 MCG/2 ML AMP ONE (07:17)
[2024-05-27 08:32] LABS: ANION GAP 10 (5-15); CARBON DIOXIDE 25 mmol/L (23-29); CHLORIDE 111 mmol/L (98-107); CREATININE 0.84 mg/dL (0.55-1.30); GLUCOSE 122 mg/dL (74-106); POTASSIUM 3.5 mmol/L (3.5-5.1); SODIUM SERUM 146 mmol/L (136-145); UREA NITROGEN, BLOOD 3 mg/dL (8-21)
[2024-05-27] MEDS ORDERED: METOPROLOL TARTRATE 5 MG/5 ML VIAL IVP PRN (10:15)
[2024-05-27] MEDS ORDERED: CLONIDINE TTS TD (12:16)
[2024-05-27] MEDS ORDERED: Aspirin Ec PO (12:16)
[2024-05-27] MEDS ORDERED: CLON0.1T PO (12:16)
[2024-05-27] MEDS ORDERED: LEVE1000 PO (12:16)
[2024-05-27] MEDS ORDERED: DOXY-244 PO (12:16)
[2024-05-27] MEDS ORDERED: METO25TA6 PO (12:16)
[2024-05-27] MEDS: METOPROLOL TARTRATE 5 MG/5 ML VIAL IVP SCH (13:00)
[2024-05-28] MEDS ORDERED: cloNIDine HCL 0.1 MG/24 HR PATCH.TDWK TD SCH (09:00)
== END 2024-05-27 22:16 | disposition hospice, home (50) | DRG 64 ==
LOC: SED 22:30 → STU 05-13 02:00 → SMU 05-25 11:33 → STU 05-26 12:59
PROVIDERS: ADMIT Specialist; ATTEND Specialist
PROC: 4A00X4Z Measurement of Central Nervous Electrical Activity, External Approach (ICD-10-PCS; principal; 2024-05-13)
PROC: 4A00X4Z Measurement of Central Nervous Electrical Activity, External Approach (ICD-10-PCS; 2024-05-15)
PROC: 0DH63UZ Insertion of Feeding Device into Stomach, Percutaneous Approach (ICD-10-PCS; 2024-05-27)
DX: I63.9 Cerebral infarction, unspecified (principal); E43 Unspecified severe protein-calorie malnutrition; J69.0 Pneumonitis due to inhalation of food and vomit; I21.A1 Myocardial infarction type 2; J96.90 Respiratory failure, unspecified, unspecified whether with hypoxia or hypercapnia; R65.11 Systemic inflammatory response syndrome (SIRS) of non-infectious origin with acute organ dysfunction; I69.354 Hemiplegia and hemiparesis following cerebral infarction affecting left non-dominant side; N39.0 Urinary tract infection, site not specified; G40.909 Epilepsy, unspecified, not intractable, without status epilepticus; E87.6 Hypokalemia; E78.00 Pure hypercholesterolemia, unspecified; E83.51 Hypocalcemia; E83.52 Hypercalcemia; E88.09 Other disorders of plasma-protein metabolism, not elsewhere classified; I10 Essential (primary) hypertension; D64.9 Anemia, unspecified; I25.10 Atherosclerotic heart disease of native coronary artery without angina pectoris; F03.90 Unspecified dementia, unspecified severity, without behavioral disturbance, psychotic disturbance, mood disturbance, and anxiety; Z74.01 Bed confinement status; I69.391 Dysphagia following cerebral infarction; Z79.82 Long term (current) use of aspirin; Z79.899 Other long term (current) drug therapy; Z68.24 Body mass index [BMI] 24.0-24.9, adult; Z85.841 Personal history of malignant neoplasm of brain
CPT/HCPCS: 36415; 43246; 70450-TC; 70551; 71045; 71250-TC; 80048; 80053; 80076; 80202; 81000; 81001; 81015; 82948; 83605; 83735; 84100; 84484; 85025; 85610; 85651; 85730; 87040; 87086; 92610-GN; 93005; 93306; 94070; 94640; 94760; 95816; 96365; 97110-GP; 97530-GP; 99291; 99292; G0378; J0360; J0690; J1940; J1953; J2060; J2250; J2270; J2405; J2543; J3010; J3370; J3480; J3490; J7050; J7060; J7608